=== PATIENT | male | born 1930 | race Caucasian/White ===

== ENCOUNTER 2017-07-13 11:34 | Inpatient (IN) | payer MEDICARE ==
[~2017-07-13] VITALS: Ht 172.7 cm; Wt 80.9 kg
[~2017-07-13 11:34] MED LIST: ACIDOPHILUS100 MG PO; CARV-50 PO; KEP500T PO; LISI10TA4 PO; OMEG300C3 PO; PRAV40TA PO
[2017-07-13] MEDS ORDERED: HYDROmorphone 1 mg/ml syringe IV PRN ×2 (13:50→14:50)
[2017-07-13] MEDS ORDERED: HYDROmorphone inj. 0.5 MG/0.5 ML DISP.SYRIN IV PRN ×2 (13:52→14:50)
[2017-07-13 13:57] LABS: BASOPHILS # (AUTO) 0.1 X10'3 (0-0.2); BASOPHILS % (AUTO) 0.6 % (0-1); EOSINOPHILS # (AUTO) 0.2 X10'3 (0-0.9); EOSINOPHILS % (AUTO) 2.6 % (0-6); HEMOGLOBIN 14.7 g/dl (14.0-17.9); LYMPHOCYTES # (AUTO) 1.1 X10'3 (1.1-4.8); LYMPHOCYTES % (AUTO) 11.8 % (21-51); MEAN CORPUSCULAR HEMOGLOBIN 30.7 PG (27.0-31.0); MEAN CORPUSCULAR HGB CONC 34.3 % (33.0-36.5); MEAN CORPUSCULAR VOLUME 89.7 FL (78-98); MEAN PLATELET VOLUME 9.1 FL (7.4-10.4); MONOCYTES # (AUTO) 0.7 X10'3 (0-0.9); MONOCYTES % (AUTO) 7.6 % (2-12); NEUTROPHILS # (AUTO) 7.3 X10'3 (1.8-7.7); NEUTROPHILS % (AUTO) 77.4 % (42-75); PLATELET COUNT 126 X10'3 (140-440); RED BLOOD COUNT 4.79 X10'6 (4.70-6.10); RED CELL DISTRIBUTION WIDTH 13.9 % (11.5-14.5); WHITE BLOOD COUNT 9.5 X10'3 (4.5-11.0)
[2017-07-13 14:19] LABS: ALANINE AMINOTRANSFERASE 22 U/L (12-78); ALBUMIN 3.8 G/DL (3.4-5.0); ALBUMIN/GLOBULIN RATIO 1.1 (1.1-1.5); ALKALINE PHOSPHATASE 79 IU/L (46-116); ANION GAP 9 (8-16); ASPARTATE AMINO TRANSFERASE 26 U/L (10-37); BILIRUBIN,TOTAL 0.9 MG/DL (0.1-1.0); BLOOD UREA NITROGEN 36 MG/DL (7-18); CALCIUM 9.3 MG/DL (8.5-10.1); CHLORIDE 104 MMOL/L (99-107); CREATININE 2.12 MG/DL (0.60-1.10); GLUCOSE 98 MG/DL (70-104); POTASSIUM 4.6 MMOL/L (3.5-5.1); SODIUM 142 MMOL/L (135-145); TOTAL CARBON DIOXIDE 29.4 MMOL/L (24-32); TOTAL PROTEIN 7.2 G/DL (6.4-8.2); eGFR 30 ML/MIN
[2017-07-13] MEDS ORDERED: ondansetron/PF 4mg/2ml inj IV PRN (14:50)
[2017-07-13] MEDS ORDERED: acetaminophen 325mg tablet PO PRN ×2 (14:50)
[2017-07-13] MEDS ORDERED: diphenhydrAMINE 25mg capsule PO PRN (14:50)
[2017-07-13] MEDS ORDERED: HYDROcodone/acetaminophen 10/325mg tab PO PRN (14:50)
[2017-07-13] MEDS ORDERED: magnesium hydroxide 30ml (MOM) UD suspension PO PRN (14:50)
[2017-07-13] MEDS ORDERED: mag hydrox/Alum hydrox/simeth 30ml oral suspension PO PRN (14:50)
[2017-07-13] MEDS ORDERED: acetaminophen 650mg rectal suppository RC PRN (14:50)
[2017-07-13] MEDS ORDERED: diphenhydrAMINE 50 mg/ml inj IV PRN (14:50)
[2017-07-13] MEDS ORDERED: metoclopramide 5 mg/ml inj IV PRN (14:50)
[2017-07-13 15:08] LABS: INR 1.2 INR; PARTIAL THROMBOPLASTIN TIME 27 SECONDS (22-32)
[2017-07-13 15:13] LABS: HEMOGLOBIN A1C 6.1 % (4.5-6.2)
[2017-07-13 15:23] LABS: MAGNESIUM 2.2 MG/DL (1.5-2.4); PHOSPHORUS 3.1 MG/DL (2.3-4.5)
[2017-07-13 16:20] VITALS: BP 152/86
[2017-07-13 18:19] VITALS: BP 143/74
[2017-07-13] MEDS ORDERED: temazepam 15mg capsule PO PRN (21:00)
[2017-07-13] MEDS: heparin, porcine 5000 units/ml vial SQ SCH (21:21)
[2017-07-13] MEDS: levetiracetam 250mg tablet PO SCH (21:22)
[2017-07-13] MEDS: tamsulosin 0.4mg capsule PO SCH (21:22)
[2017-07-13] MEDS: lactobacillus rhamnosus 10,000 MMU CELLS/CAPSULE PO SCH (21:22)
[2017-07-13] MEDS: docusate sod 100mg capsule PO SCH (21:23)
[2017-07-13] MEDS: cloNIDine 0.1 mg tablet PO SCH (21:23)
[2017-07-13] MEDS: HYDROcodone/acetaminophen 5mg/325mg tablet PO PRN (21:23)
[2017-07-13] MEDS: normal saline 1000ml 1,000 ML IV SCH (21:24)
[2017-07-13 22:00] VITALS: BP 132/67
[2017-07-14] MEDS: normal saline 1000ml 1,000 ML IV SCH ×3 (00:48→20:18)
[2017-07-14] MEDS: HYDROcodone/acetaminophen 5mg/325mg tablet PO PRN ×3 (05:43→17:10)
[2017-07-14 06:29] VITALS: BP 107/60
[2017-07-14] MEDS: heparin, porcine 5000 units/ml vial SQ SCH ×2 (07:21→20:17)
[2017-07-14] MEDS: pantoprazole 40mg Tablet.DR PO SCH (07:23)
[2017-07-14] MEDS: levetiracetam 250mg tablet PO SCH ×2 (07:23→20:17)
[2017-07-14] MEDS: docusate sod 100mg capsule PO SCH ×2 (07:24→20:17)
[2017-07-14] MEDS: atorvastatin 10mg tablet PO SCH (07:24)
[2017-07-14] MEDS: lactobacillus rhamnosus 10,000 MMU CELLS/CAPSULE PO SCH ×2 (07:24→17:10)
[2017-07-14] MEDS: carVEDilol 12.5mg tablet PO SCH (07:24)
[2017-07-14] MEDS ORDERED: pantoprazole 40mg Tablet.DR PO SCH (07:30)
[2017-07-14 07:35] LABS: BASOPHILS % (AUTO) 0.3 % (0-1); EOSINOPHILS # (AUTO) 0.1 X10'3 (0-0.9); EOSINOPHILS % (AUTO) 1.5 % (0-6); HEMATOCRIT 41.3 % (42.0-52.0); HEMOGLOBIN 14.1 g/dl (14.0-17.9); LYMPHOCYTES # (AUTO) 1.2 X10'3 (1.1-4.8); LYMPHOCYTES % (AUTO) 15.5 % (21-51); MEAN CORPUSCULAR HGB CONC 34.1 % (33.0-36.5); MEAN CORPUSCULAR VOLUME 91.1 FL (78-98); MEAN PLATELET VOLUME 9.2 FL (7.4-10.4); MONOCYTES # (AUTO) 0.8 X10'3 (0-0.9); MONOCYTES % (AUTO) 10.6 % (2-12); NEUTROPHILS # (AUTO) 5.4 X10'3 (1.8-7.7); NEUTROPHILS % (AUTO) 72.1 % (42-75); PLATELET COUNT 108 X10'3 (140-440); RED BLOOD COUNT 4.53 X10'6 (4.70-6.10); RED CELL DISTRIBUTION WIDTH 13.6 % (11.5-14.5); WHITE BLOOD COUNT 7.6 X10'3 (4.5-11.0)
[2017-07-14 07:47] LABS: ALANINE AMINOTRANSFERASE 24 U/L (12-78); ALBUMIN 3.4 G/DL (3.4-5.0); ALBUMIN/GLOBULIN RATIO 1.1 (1.1-1.5); ALKALINE PHOSPHATASE 77 IU/L (46-116); ANION GAP 10 (8-16); ASPARTATE AMINO TRANSFERASE 24 U/L (10-37); BILIRUBIN,TOTAL 1.1 MG/DL (0.1-1.0); BLOOD UREA NITROGEN 33 MG/DL (7-18); BUN/CREATININE RATIO 14.1 (5.4-32.0); CALCIUM 8.7 MG/DL (8.5-10.1); CHLORIDE 105 MMOL/L (99-107); CREATININE 2.34 MG/DL (0.60-1.10); GLUCOSE 92 MG/DL (70-104); SODIUM 143 MMOL/L (135-145); TOTAL PROTEIN 6.6 G/DL (6.4-8.2); eGFR 27 ML/MIN
[2017-07-14] MEDS: cloNIDine 0.1 mg tablet PO SCH ×4 (08:00→20:21)
[2017-07-14] MEDS: OMEGA-3/DHA/EPA/FISH OIL 1 EACH CAPSULE.DR PO SCH (08:00)
[2017-07-14] MEDS: lisinopril 10 MG tablet PO SCH (08:00)
[2017-07-14 12:10] VITALS: BP 105/51
[2017-07-14] MEDS ORDERED: ASPI-257 (15:42)
[2017-07-14] MEDS ORDERED: FINA5TAB11 PO (15:42)
[2017-07-14 18:00] VITALS: BP 114/72
[2017-07-14] MEDS: tamsulosin 0.4mg capsule PO SCH (20:17)
[2017-07-14 20:21] VITALS: BP 99/55
[2017-07-15] MEDS: HYDROcodone/acetaminophen 5mg/325mg tablet PO PRN ×3 (00:37→15:42)
[2017-07-15 05:00] VITALS: BP 118/62
[2017-07-15 06:01] LABS: BASOPHILS % (AUTO) 0.4 % (0-1); EOSINOPHILS # (AUTO) 0.2 X10'3 (0-0.9); EOSINOPHILS % (AUTO) 3.6 % (0-6); HEMATOCRIT 38.7 % (42.0-52.0); HEMOGLOBIN 13.3 g/dl (14.0-17.9); LYMPHOCYTES # (AUTO) 1.3 X10'3 (1.1-4.8); LYMPHOCYTES % (AUTO) 18.4 % (21-51); MEAN CORPUSCULAR HEMOGLOBIN 31.1 PG (27.0-31.0); MEAN CORPUSCULAR HGB CONC 34.3 % (33.0-36.5); MEAN CORPUSCULAR VOLUME 90.6 FL (78-98); MEAN PLATELET VOLUME 9.3 FL (7.4-10.4); MONOCYTES # (AUTO) 0.8 X10'3 (0-0.9); MONOCYTES % (AUTO) 11.3 % (2-12); NEUTROPHILS # (AUTO) 4.6 X10'3 (1.8-7.7); NEUTROPHILS % (AUTO) 66.3 % (42-75); PLATELET COUNT 99 X10'3 (140-440); RED BLOOD COUNT 4.27 X10'6 (4.70-6.10); RED CELL DISTRIBUTION WIDTH 13.9 % (11.5-14.5); WHITE BLOOD COUNT 6.9 X10'3 (4.5-11.0)
[2017-07-15 06:24] LABS: ALANINE AMINOTRANSFERASE 25 U/L (12-78); ALBUMIN 3.1 G/DL (3.4-5.0); ALKALINE PHOSPHATASE 69 IU/L (46-116); ANION GAP 7 (8-16); ASPARTATE AMINO TRANSFERASE 24 U/L (10-37); BILIRUBIN,TOTAL 0.7 MG/DL (0.1-1.0); BLOOD UREA NITROGEN 38 MG/DL (7-18); BUN/CREATININE RATIO 15.1 (5.4-32.0); CALCIUM 8.3 MG/DL (8.5-10.1); CHLORIDE 107 MMOL/L (99-107); CREATININE 2.51 MG/DL (0.60-1.10); GLUCOSE 96 MG/DL (70-104); POTASSIUM 4.8 MMOL/L (3.5-5.1); SODIUM 141 MMOL/L (135-145); TOTAL CARBON DIOXIDE 26.7 MMOL/L (24-32); TOTAL PROTEIN 6.3 G/DL (6.4-8.2); eGFR 24 ML/MIN
[2017-07-15] MEDS: normal saline 1000ml 1,000 ML IV SCH ×3 (06:48→20:17)
[2017-07-15] MEDS: levetiracetam 250mg tablet PO SCH ×2 (07:59→20:16)
[2017-07-15] MEDS: lisinopril 10 MG tablet PO SCH (07:59)
[2017-07-15] MEDS: pantoprazole 40mg Tablet.DR PO SCH (08:00)
[2017-07-15] MEDS: cloNIDine 0.1 mg tablet PO SCH ×3 (08:00→20:16)
[2017-07-15] MEDS: heparin, porcine 5000 units/ml vial SQ SCH ×2 (08:00→20:16)
[2017-07-15] MEDS: lactobacillus rhamnosus 10,000 MMU CELLS/CAPSULE PO SCH ×2 (08:01→17:54)
[2017-07-15] MEDS: OMEGA-3/DHA/EPA/FISH OIL 1 EACH CAPSULE.DR PO SCH (08:01)
[2017-07-15] MEDS: docusate sod 100mg capsule PO SCH ×2 (08:01→20:16)
[2017-07-15] MEDS: carVEDilol 12.5mg tablet PO SCH (08:02)
[2017-07-15] MEDS: atorvastatin 10mg tablet PO SCH (08:02)
[2017-07-15 10:49] VITALS: BP 114/59
[2017-07-15 18:00] VITALS: BP 155/71
[2017-07-15] MEDS: tamsulosin 0.4mg capsule PO SCH (20:16)
[2017-07-15 22:00] VITALS: BP 128/69
[2017-07-16] MEDS: normal saline 1000ml 1,000 ML IV SCH (05:38)
[2017-07-16 05:56] LABS: BASOPHILS % (AUTO) 0.4 % (0-1); EOSINOPHILS # (AUTO) 0.2 X10'3 (0-0.9); EOSINOPHILS % (AUTO) 4.1 % (0-6); HEMATOCRIT 37.2 % (42.0-52.0); HEMOGLOBIN 12.8 g/dl (14.0-17.9); LYMPHOCYTES # (AUTO) 0.9 X10'3 (1.1-4.8); LYMPHOCYTES % (AUTO) 15.6 % (21-51); MEAN CORPUSCULAR HGB CONC 34.4 % (33.0-36.5); MEAN CORPUSCULAR VOLUME 90.2 FL (78-98); MEAN PLATELET VOLUME 9.3 FL (7.4-10.4); MONOCYTES # (AUTO) 0.7 X10'3 (0-0.9); MONOCYTES % (AUTO) 11.3 % (2-12); NEUTROPHILS % (AUTO) 68.6 % (42-75); PLATELET COUNT 90 X10'3 (140-440); RED BLOOD COUNT 4.12 X10'6 (4.70-6.10); RED CELL DISTRIBUTION WIDTH 13.4 % (11.5-14.5); WHITE BLOOD COUNT 5.8 X10'3 (4.5-11.0)
[2017-07-16 06:00] VITALS: BP 134/67
[2017-07-16 06:05] LABS: ALANINE AMINOTRANSFERASE 23 U/L (12-78); ALBUMIN 2.8 G/DL (3.4-5.0); ALBUMIN/GLOBULIN RATIO 0.9 (1.1-1.5); ALKALINE PHOSPHATASE 62 IU/L (46-116); ANION GAP 10 (8-16); ASPARTATE AMINO TRANSFERASE 22 U/L (10-37); BILIRUBIN,TOTAL 0.8 MG/DL (0.1-1.0); BLOOD UREA NITROGEN 32 MG/DL (7-18); BUN/CREATININE RATIO 16.5 (5.4-32.0); CALCIUM 8.3 MG/DL (8.5-10.1); CHLORIDE 107 MMOL/L (99-107); CREATININE 1.94 MG/DL (0.60-1.10); GLUCOSE 92 MG/DL (70-104); POTASSIUM 4.5 MMOL/L (3.5-5.1); SODIUM 142 MMOL/L (135-145); TOTAL CARBON DIOXIDE 24.7 MMOL/L (24-32); TOTAL PROTEIN 5.8 G/DL (6.4-8.2); eGFR 33 ML/MIN
[2017-07-16] MEDS: cloNIDine 0.1 mg tablet PO SCH ×4 (08:00→21:07)
[2017-07-16] MEDS: heparin, porcine 5000 units/ml vial SQ SCH ×2 (08:00→20:00)
[2017-07-16] MEDS: carVEDilol 12.5mg tablet PO SCH (08:00)
[2017-07-16] MEDS: lisinopril 10 MG tablet PO SCH (08:00)
[2017-07-16 08:41] VITALS: BP 98/49
[2017-07-16] MEDS: lactobacillus rhamnosus 10,000 MMU CELLS/CAPSULE PO SCH ×2 (08:44→17:36)
[2017-07-16] MEDS: pantoprazole 40mg Tablet.DR PO SCH (08:44)
[2017-07-16] MEDS: OMEGA-3/DHA/EPA/FISH OIL 1 EACH CAPSULE.DR PO SCH (08:44)
[2017-07-16] MEDS: docusate sod 100mg capsule PO SCH ×2 (08:44→21:08)
[2017-07-16] MEDS: atorvastatin 10mg tablet PO SCH (08:45)
[2017-07-16] MEDS: levetiracetam 250mg tablet PO SCH ×2 (08:45→21:08)
[2017-07-16 10:00] VITALS: BP 103/52
[2017-07-16] MEDS: HYDROcodone/acetaminophen 5mg/325mg tablet PO PRN (12:25)
[2017-07-16 13:45] VITALS: BP 112/68
[2017-07-16] MEDS ORDERED: HYDROcodone/acetaminophen 10/325mg tab PO PRN (17:25)
[2017-07-16] MEDS ORDERED: morphine 2 MG/ML inj. syringe IV PRN (17:25)
[2017-07-16 18:00] VITALS: BP 120/67
[2017-07-16] MEDS: tamsulosin 0.4mg capsule PO SCH (21:07)
[2017-07-16] MEDS ORDERED: acetaminophen w/codeine (30MG) #3 tablet PO PRN (21:30)
[2017-07-16] MEDS ORDERED: LORazepam 0.5 MG tablet PO PRN (21:30)
[2017-07-16 22:00] VITALS: BP 117/61
[2017-07-17] MEDS: acetaminophen w/codeine (30MG) #3 tablet PO PRN ×3 (01:22→08:55)
[2017-07-17] MEDS ORDERED: cefTRIAXone 1g/NS 100ml IVPB 100 ML IV ONE (04:20)
[2017-07-17 05:00] VITALS: BP 103/57
[2017-07-17 05:51] LABS: BASOPHILS % (AUTO) 0.3 % (0-1); EOSINOPHILS # (AUTO) 0.2 X10'3 (0-0.9); EOSINOPHILS % (AUTO) 3.9 % (0-6); HEMATOCRIT 37.6 % (42.0-52.0); HEMOGLOBIN 12.8 g/dl (14.0-17.9); LYMPHOCYTES % (AUTO) 16.4 % (21-51); MEAN CORPUSCULAR HEMOGLOBIN 31.1 PG (27.0-31.0); MEAN CORPUSCULAR HGB CONC 34.1 % (33.0-36.5); MEAN CORPUSCULAR VOLUME 91.3 FL (78-98); MEAN PLATELET VOLUME 9.4 FL (7.4-10.4); MONOCYTES # (AUTO) 0.7 X10'3 (0-0.9); NEUTROPHILS # (AUTO) 4.1 X10'3 (1.8-7.7); NEUTROPHILS % (AUTO) 68.4 % (42-75); PLATELET COUNT 102 X10'3 (140-440); RED BLOOD COUNT 4.12 X10'6 (4.70-6.10); RED CELL DISTRIBUTION WIDTH 13.7 % (11.5-14.5)
[2017-07-17 06:23] LABS: ALANINE AMINOTRANSFERASE 25 U/L (12-78); ALBUMIN 2.8 G/DL (3.4-5.0); ALBUMIN/GLOBULIN RATIO 0.9 (1.1-1.5); ALKALINE PHOSPHATASE 66 IU/L (46-116); ANION GAP 8 (8-16); ASPARTATE AMINO TRANSFERASE 23 U/L (10-37); BILIRUBIN,TOTAL 0.6 MG/DL (0.1-1.0); BLOOD UREA NITROGEN 31 MG/DL (7-18); BUN/CREATININE RATIO 15.5 (5.4-32.0); CALCIUM 8.3 MG/DL (8.5-10.1); CHLORIDE 108 MMOL/L (99-107); GLUCOSE 102 MG/DL (70-104); POTASSIUM 4.6 MMOL/L (3.5-5.1); SODIUM 142 MMOL/L (135-145); TOTAL PROTEIN 5.9 G/DL (6.4-8.2); eGFR 32 ML/MIN
[2017-07-17] MEDS: carVEDilol 12.5mg tablet PO SCH (08:00)
[2017-07-17] MEDS: cloNIDine 0.1 mg tablet PO SCH (08:00)
[2017-07-17] MEDS: lisinopril 10 MG tablet PO SCH (08:00)
[2017-07-17] MEDS: OMEGA-3/DHA/EPA/FISH OIL 1 EACH CAPSULE.DR PO SCH (08:28)
[2017-07-17] MEDS: docusate sod 100mg capsule PO SCH (08:28)
[2017-07-17] MEDS: lactobacillus rhamnosus 10,000 MMU CELLS/CAPSULE PO SCH (08:28)
[2017-07-17] MEDS: pantoprazole 40mg Tablet.DR PO SCH (08:28)
[2017-07-17] MEDS: atorvastatin 10mg tablet PO SCH (08:29)
[2017-07-17] MEDS: levetiracetam 250mg tablet PO SCH (08:29)
== END 2017-07-17 09:00 | DRG 682 ==
LOC: ER 11:35 → ED HOLD 14:48 → ORTHO 4S 16:20
PROVIDERS: ADMIT Family Medicine; ATTEND Internal Medicine
DX: N17.9 Acute kidney failure, unspecified (principal); S72.001A Fracture of unspecified part of neck of right femur, initial encounter for closed fracture; I50.33 Acute on chronic diastolic (congestive) heart failure; J44.9 Chronic obstructive pulmonary disease, unspecified; I11.0 Hypertensive heart disease with heart failure; Z95.1 Presence of aortocoronary bypass graft; I16.1 Hypertensive emergency; R26.9 Unspecified abnormalities of gait and mobility; I25.10 Atherosclerotic heart disease of native coronary artery without angina pectoris; N40.0 Benign prostatic hyperplasia without lower urinary tract symptoms; R09.02 Hypoxemia; W01.0XXA Fall on same level from slipping, tripping and stumbling without subsequent striking against object, initial encounter; Z99.3 Dependence on wheelchair; Z88.5 Allergy status to narcotic agent; Z79.899 Other long term (current) drug therapy; Y93.89 Activity, other specified; Y92.89 Other specified places as the place of occurrence of the external cause; Y99.8 Other external cause status
CPT/HCPCS: 36415; 71270; 72131; 72192; 73502; 80053; 83036; 83690; 83735; 83880; 84100; 84443; 85025; 85610; 85730; 87070; 93306; 94760; 96365; 97110; 97116; 97162; 97530; 99285; A4353; A6212; A6258; J0696; J1170; J1644; J7030

== ENCOUNTER 2019-04-22 10:11 | Inpatient (IN) | payer MEDICARE ==
[~2019-04-22] VITALS: Ht 172.7 cm; Wt 76.1 kg
[~2019-04-22 10:11] MED LIST changes: -ACIDOPHILUS100 MG PO; +ADV50250 INH; +ALBU18HF2 INH; +ALBU2.5V10 NEB; +ASPI-257 PO; +ATOR40TA72 PO; -CARV-50 PO; +CARV6.253 PO; +FLO0.4C PO; +FURO-149 PO; -LISI10TA4 PO; +MULT-955 PO; -PRAV40TA PO
[2019-04-22 11:50] LABS: BASOPHILS % (AUTO) 0.9 % (0-1); EOSINOPHILS # (AUTO) 0.1 X10'3 (0-0.9); EOSINOPHILS % (AUTO) 1.9 % (0-6); HEMOGLOBIN 12.9 g/dl (14.0-17.9); LYMPHOCYTES % (AUTO) 17.6 % (21-51); MEAN CORPUSCULAR HEMOGLOBIN 32.4 PG (27.0-31.0); MEAN CORPUSCULAR HGB CONC 33.2 g/dL (33.0-36.5); MEAN CORPUSCULAR VOLUME 97.6 FL (78-98); MEAN PLATELET VOLUME 9.8 FL (7.4-10.4); MONOCYTES # (AUTO) 0.8 X10'3 (0-0.9); MONOCYTES % (AUTO) 14.1 % (2-12); NEUTROPHILS # (AUTO) 3.6 X10'3 (1.8-7.7); NEUTROPHILS % (AUTO) 65.5 % (42-75); PLATELET COUNT 85 X10'3 (140-440); RED CELL DISTRIBUTION WIDTH 14.5 % (11.5-14.5); WHITE BLOOD COUNT 5.6 X10'3 (4.5-11.0)
[2019-04-22 12:07] LABS: ALANINE AMINOTRANSFERASE 20 U/L (12-78); ALBUMIN 3.2 G/DL (3.4-5.0); ALBUMIN/GLOBULIN RATIO 1.1 (1.1-1.5); ALKALINE PHOSPHATASE 71 IU/L (46-116); ANION GAP 4 (8-16); ASPARTATE AMINO TRANSFERASE 23 U/L (10-37); BILIRUBIN,TOTAL 0.7 MG/DL (0.1-1.0); BLOOD UREA NITROGEN 44 MG/DL (7-18); BUN/CREATININE RATIO 17.9 (5.4-32.0); CALCIUM 9.1 MG/DL (8.5-10.1); CHLORIDE 104 MMOL/L (99-107); CREATININE 2.46 MG/DL (0.60-1.10); GLUCOSE 112 MG/DL (70-104); POTASSIUM 3.8 MMOL/L (3.5-5.1); SODIUM 145 MMOL/L (135-145); TOTAL CARBON DIOXIDE 37.1 MMOL/L (24-32); TOTAL PROTEIN 6.2 G/DL (6.4-8.2); eGFR 25 ML/MIN
[2019-04-22 12:14] LABS: MAGNESIUM 2.1 MG/DL (1.5-2.4)
[2019-04-22] MEDS ORDERED: furosemide 10 MG/1 ML 10ml inj IV ONE (13:00)
[2019-04-22] MEDS ORDERED: FINA5TAB12 PO (13:59)
[2019-04-22] MEDS ORDERED: FURO40TA4 PO (14:08)
--- NOTE | 2019-04-22 14:48 | NUR ---
pt states, he frequently puts tissue in his nose to help with his nasal drip. had pt remove for nasal swab.
[2019-04-22] MEDS ORDERED: mag hydrox/Alum hydrox/simeth 30ml oral suspension PO PRN (15:25)
[2019-04-22] MEDS ORDERED: magnesium hydroxide 30ml (MOM) UD suspension PO PRN (15:25)
[2019-04-22] MEDS ORDERED: ondansetron/PF 4mg/2ml inj IV PRN (15:25)
--- NOTE | 2019-04-22 16:16 | NUR ---
Patient in room MED 309. I have received report from ER nurse Ebony and had the opportunity to ask questions and assume patient care.
--- NOTE | 2019-04-22 16:34 | NUR ---
CALLED REPORT NURSE IS IN A ROOM WILL CALL BACK
--- NOTE | 2019-04-22 17:12 | NUR ---
Patient arrived from ER helped to his bed using slide board. Placed on monitors. VS s and were 97.8 oral, 77, 122/62, 14. He denied any pain, no s/s of distress. His daughter was with him. He is alert and oriented x4. When nurses went to do 2 RN skin check the pt was found to have feces and toilet paper in his under patel, they were removed, and pt cleaned. Pt and daughter requested that his underware be thrown away. he stated he had diarrhea this morning but did not realize that this was on him. He did say he had placed toilet paper around perianal area because it was burning. When the 2 RN skin check he was found to have blanchable redness to his bilat buttocks going down to thigh area. His groin was very red and irritated. He had red but blanchable heels. Very dry skin on both feet. He had a venous stasis ulcer on [facility]. He denied any other needs at this time except that he was very hungry. Tray ordered for him. Report given to [facility] Nurse.
[2019-04-22 18:00] VITALS: BP 129/63
--- NOTE | 2019-04-22 18:00 | NUR ---
Problems reprioritized. Patient report given, questions answered & plan of care reviewed with Tamiko FARRELL.
[2019-04-22] MEDS: albuterol 2.5 MG/3 ML nebule NEB PRN (19:23)
[2019-04-22] MEDS: budesonide 0.5mg/2ml UD nebule IH SCH (19:24)
[2019-04-22] MEDS: carvedilol 6.25mg tablet PO SCH (20:30)
[2019-04-22] MEDS: tamsulosin 0.4mg capsule PO SCH (20:30)
[2019-04-22] MEDS: levetiracetam 250mg tablet PO SCH (20:30)
[2019-04-22] MEDS: heparin, porcine 5000 units/ml vial SQ SCH (20:31)
[2019-04-22] MEDS: furosemide 10 MG/1 ML 10ml inj IV SCH (20:32)
[2019-04-22] MEDS: finasteride 5mg tablet PO SCH (20:33)
[2019-04-22 22:27] VITALS: BP 127/71
[2019-04-23 04:00] VITALS: BP 126/60
[2019-04-23 04:55] LABS: ALBUMIN 3.4 G/DL (3.4-5.0); ANION GAP 4 (8-16); BLOOD UREA NITROGEN 42 MG/DL (7-18); BUN/CREATININE RATIO 16.7 (5.4-32.0); CALCIUM 9.2 MG/DL (8.5-10.1); CHLORIDE 103 MMOL/L (99-107); CREATININE 2.52 MG/DL (0.60-1.10); GLUCOSE 99 MG/DL (70-104); POTASSIUM 4.1 MMOL/L (3.5-5.1); SODIUM 144 MMOL/L (135-145); TOTAL CARBON DIOXIDE 37.3 MMOL/L (24-32); eGFR 24 ML/MIN
[2019-04-23 04:58] LABS: EOSINOPHILS # (AUTO) 0.1 X10'3 (0-0.9); EOSINOPHILS % (AUTO) 2.7 % (0-6); HEMATOCRIT 40.9 % (42.0-52.0); HEMOGLOBIN 13.5 g/dl (14.0-17.9); LYMPHOCYTES # (AUTO) 1.1 X10'3 (1.1-4.8); LYMPHOCYTES % (AUTO) 22.8 % (21-51); MEAN CORPUSCULAR HEMOGLOBIN 31.7 PG (27.0-31.0); MEAN CORPUSCULAR VOLUME 96.2 FL (78-98); MEAN PLATELET VOLUME 9.6 FL (7.4-10.4); MONOCYTES # (AUTO) 0.7 X10'3 (0-0.9); MONOCYTES % (AUTO) 13.9 % (2-12); NEUTROPHILS # (AUTO) 2.9 X10'3 (1.8-7.7); NEUTROPHILS % (AUTO) 59.6 % (42-75); PLATELET COUNT 89 X10'3 (140-440); RED BLOOD COUNT 4.25 X10'6 (4.70-6.10); RED CELL DISTRIBUTION WIDTH 14.9 % (11.5-14.5); WHITE BLOOD COUNT 4.8 X10'3 (4.5-11.0)
[2019-04-23 06:00] VITALS: BP 117/56
--- NOTE | 2019-04-23 06:21 | NUR ---
Problems reprioritized. Patient report given Kati, questions answered & plan of care reviewed with . Addendum: 04/23/19 at 0623 by Lillian Davies RN Gave report to Chavez not Kati.
--- NOTE | 2019-04-23 06:33 | NUR ---
Patient in room MED 309. I have received report from JAMI Snyder and had the opportunity to ask questions and assume patient care.
[2019-04-23] MEDS: furosemide 10 MG/1 ML 10ml inj IV SCH ×2 (07:37→21:00)
[2019-04-23] MEDS: multivitamins, therapeutics tablet PO SCH (07:38)
[2019-04-23] MEDS: heparin, porcine 5000 units/ml vial SQ SCH ×2 (07:38→21:01)
[2019-04-23] MEDS: omega-3 acid ethyl esters 1GM capsule PO SCH (07:38)
[2019-04-23] MEDS: aspirin 81mg tablet.DR PO SCH (07:39)
[2019-04-23] MEDS: tamsulosin 0.4mg capsule PO SCH ×2 (07:39→21:01)
[2019-04-23] MEDS: carvedilol 6.25mg tablet PO SCH ×2 (07:39→21:01)
[2019-04-23] MEDS: levetiracetam 250mg tablet PO SCH ×2 (07:39→21:01)
[2019-04-23] MEDS: atorvastatin 20mg tablet PO SCH (07:39)
[2019-04-23] MEDS: budesonide 0.5mg/2ml UD nebule IH SCH ×2 (07:49→19:34)
--- NOTE | 2019-04-23 10:30 | NUR ---
DISCHARGE FOLLOW-UP APPOINTMENT DR. LÓPEZ 05/27/19 @ [id number]
[2019-04-23 11:00] VITALS: BP 116/50
[2019-04-23 15:00] VITALS: BP 99/49
[2019-04-23 18:00] VITALS: BP 129/62
--- NOTE | 2019-04-23 18:27 | NUR ---
Problems reprioritized. Patient report given, questions answered & plan of care reviewed with JAMI Snyder.
[2019-04-23] MEDS: DOBUTamine-DoBUTrex 500mg/D5W 250 ML IV SCH (18:53)
[2019-04-23] MEDS: albuterol 2.5 MG/3 ML nebule NEB PRN (19:33)
[2019-04-23] MEDS: finasteride 5mg tablet PO SCH (21:02)
[2019-04-23 22:00] VITALS: BP 117/58
--- NOTE | 2019-04-23 23:08 | NUR ---
patient refused to put the SCD's on despite explaining to him that it helps to prevent DVT and also will help decrease the edema on the legs.
[2019-04-24] VITALS (7 sets, daily range): BP systolic 109–124; BP diastolic 49–58
[2019-04-24 03:10] LABS: BASOPHILS % (AUTO) 0.7 % (0-1); EOSINOPHILS # (AUTO) 0.2 X10'3 (0-0.9); EOSINOPHILS % (AUTO) 2.8 % (0-6); HEMATOCRIT 38.5 % (42.0-52.0); HEMOGLOBIN 12.8 g/dl (14.0-17.9); LYMPHOCYTES # (AUTO) 1.1 X10'3 (1.1-4.8); LYMPHOCYTES % (AUTO) 19.4 % (21-51); MEAN CORPUSCULAR HEMOGLOBIN 31.8 PG (27.0-31.0); MEAN CORPUSCULAR HGB CONC 33.2 g/dL (33.0-36.5); MEAN PLATELET VOLUME 9.8 FL (7.4-10.4); MONOCYTES # (AUTO) 0.8 X10'3 (0-0.9); MONOCYTES % (AUTO) 14.6 % (2-12); NEUTROPHILS # (AUTO) 3.4 X10'3 (1.8-7.7); NEUTROPHILS % (AUTO) 62.5 % (42-75); PLATELET COUNT 86 X10'3 (140-440); RED BLOOD COUNT 4.01 X10'6 (4.70-6.10); RED CELL DISTRIBUTION WIDTH 14.7 % (11.5-14.5); WHITE BLOOD COUNT 5.5 X10'3 (4.5-11.0)
[2019-04-24 03:14] LABS: ALBUMIN 3.2 G/DL (3.4-5.0); ANION GAP 4 (8-16); BLOOD UREA NITROGEN 47 MG/DL (7-18); BUN/CREATININE RATIO 20.3 (5.4-32.0); CALCIUM 8.8 MG/DL (8.5-10.1); CHLORIDE 102 MMOL/L (99-107); CREATININE 2.31 MG/DL (0.60-1.10); GLUCOSE 107 MG/DL (70-104); POTASSIUM 3.4 MMOL/L (3.5-5.1); SODIUM 145 MMOL/L (135-145); eGFR 27 ML/MIN
[2019-04-24] MEDS: budesonide 0.5mg/2ml UD nebule IH SCH ×2 (07:41→19:04)
[2019-04-24] MEDS: heparin, porcine 5000 units/ml vial SQ SCH ×2 (10:06→19:14)
[2019-04-24] MEDS: omega-3 acid ethyl esters 1GM capsule PO SCH (10:07)
[2019-04-24] MEDS: levetiracetam 250mg tablet PO SCH ×2 (10:07→19:13)
[2019-04-24] MEDS: aspirin 81mg tablet.DR PO SCH (10:07)
[2019-04-24] MEDS: tamsulosin 0.4mg capsule PO SCH ×2 (10:08→19:13)
[2019-04-24] MEDS: multivitamins, therapeutics tablet PO SCH (10:08)
[2019-04-24] MEDS: carvedilol 6.25mg tablet PO SCH ×2 (10:08→19:14)
[2019-04-24] MEDS: atorvastatin 20mg tablet PO SCH (10:08)
[2019-04-24] MEDS: furosemide 10 MG/1 ML 10ml inj IV SCH ×2 (10:09→19:14)
[2019-04-24] MEDS ORDERED: potassium Cl 20 mEq SR tablet PO ONE (10:45)
[2019-04-24] MEDS ORDERED: furosemide 40mg/4ml inj IV ONE (12:00)
[2019-04-24] MEDS: DOBUTamine-DoBUTrex 500mg/D5W 250 ML IV SCH (14:43)
[2019-04-24] MEDS: finasteride 5mg tablet PO SCH (19:14)
[2019-04-24] MEDS: acetaminophen 325mg tablet PO PRN (19:15)
[2019-04-25] VITALS (11 sets, daily range): BP systolic 101–119; BP diastolic 48–68
[2019-04-25 04:32] LABS: BASOPHILS % (AUTO) 0.6 % (0-1); EOSINOPHILS # (AUTO) 0.1 X10'3 (0-0.9); EOSINOPHILS % (AUTO) 2.4 % (0-6); HEMATOCRIT 38.7 % (42.0-52.0); HEMOGLOBIN 12.7 g/dl (14.0-17.9); LYMPHOCYTES # (AUTO) 1.1 X10'3 (1.1-4.8); LYMPHOCYTES % (AUTO) 23.5 % (21-51); MEAN CORPUSCULAR HEMOGLOBIN 31.7 PG (27.0-31.0); MEAN CORPUSCULAR HGB CONC 32.7 g/dL (33.0-36.5); MEAN CORPUSCULAR VOLUME 96.8 FL (78-98); MEAN PLATELET VOLUME 9.5 FL (7.4-10.4); MONOCYTES # (AUTO) 0.8 X10'3 (0-0.9); MONOCYTES % (AUTO) 16.6 % (2-12); NEUTROPHILS # (AUTO) 2.8 X10'3 (1.8-7.7); NEUTROPHILS % (AUTO) 56.9 % (42-75); PLATELET COUNT 86 X10'3 (140-440); RED CELL DISTRIBUTION WIDTH 14.5 % (11.5-14.5); WHITE BLOOD COUNT 4.8 X10'3 (4.5-11.0)
[2019-04-25 04:33] LABS: ANION GAP 2 (8-16); BLOOD UREA NITROGEN 43 MG/DL (7-18); CALCIUM 8.5 MG/DL (8.5-10.1); CHLORIDE 100 MMOL/L (99-107); CREATININE 2.26 MG/DL (0.60-1.10); GLUCOSE 119 MG/DL (70-104); POTASSIUM 3.4 MMOL/L (3.5-5.1); SODIUM 143 MMOL/L (135-145); eGFR 28 ML/MIN
[2019-04-25 04:38] LABS: TOTAL CARBON DIOXIDE 41.2 MMOL/L (24-32)
--- NOTE | 2019-04-25 04:42 | NUR ---
Called Dr. Crawford and informed him regarding the critical value for CO2 being 41.2. He acknowledged the critical value but no orders were given at this time.
[2019-04-25] MEDS: acetaminophen 325mg tablet PO PRN (05:32)
--- NOTE | 2019-04-25 06:10 | NUR ---
Patient in room MED 309. I have received report from JAMI Snyder and had the opportunity to ask questions and assume patient care.
--- NOTE | 2019-04-25 07:30 | NUR ---
Noted that patient serum CO2 is elevated at 41.2. Notified charge nurse , JAMI Silva. Titrated O2 from 4L on NC down to 2L over a period of 15 minutes. Patient's Sats were 100%. Patient tolerated the titration well. He is currently Sat at 95% or greater. I will continue to monitor patient for duration of shift.
[2019-04-25] MEDS: tamsulosin 0.4mg capsule PO SCH ×2 (07:55→19:34)
[2019-04-25] MEDS: carvedilol 6.25mg tablet PO SCH ×2 (07:55→19:34)
[2019-04-25] MEDS: omega-3 acid ethyl esters 1GM capsule PO SCH (07:55)
[2019-04-25] MEDS: levetiracetam 250mg tablet PO SCH ×2 (07:56→19:34)
[2019-04-25] MEDS: multivitamins, therapeutics tablet PO SCH (07:56)
[2019-04-25] MEDS: aspirin 81mg tablet.DR PO SCH (07:56)
[2019-04-25] MEDS: potassium Cl 20 mEq SR tablet PO SCH (07:56)
[2019-04-25] MEDS: furosemide 10 MG/1 ML 10ml inj IV SCH ×2 (07:56→19:35)
[2019-04-25] MEDS: atorvastatin 20mg tablet PO SCH (07:56)
[2019-04-25] MEDS: heparin, porcine 5000 units/ml vial SQ SCH ×2 (07:56→19:35)
--- NOTE | 2019-04-25 08:21 | NUR ---
PAGER ID: [phone] MESSAGE: Dr. Kwan-Patient in room 309. Regi Rodriguez adding K and Mag protocol and add on test of mag. Patient is being diuresed and K is 3.4 this morning. Thank you, Noemí Seymour ACCAna M [id number]
[2019-04-25] MEDS ORDERED: potassium CL 10mEq/100ml bag 100 ML IV PRN (08:25)
[2019-04-25] MEDS ORDERED: potassium Cl 20 mEq SR tablet PO PRN ×2 (08:25)
[2019-04-25] MEDS ORDERED: magnesium Cl slow-release 64mg tablet PO PRN (08:25)
[2019-04-25] MEDS ORDERED: magnesium 4gm in 100ml NS 100 ML IV PRN (08:25)
[2019-04-25] MEDS: budesonide 0.5mg/2ml UD nebule IH SCH ×2 (08:47→20:09)
[2019-04-25] MEDS: DOBUTamine-DoBUTrex 500mg/D5W 250 ML IV SCH (09:31)
[2019-04-25 09:33] LABS: MAGNESIUM 1.8 MG/DL (1.5-2.4)
[2019-04-25] MEDS ORDERED: potassium Cl 20 mEq SR tablet PO STA (11:11)
[2019-04-25] MEDS ORDERED: magnesium 2GM in 50ml NS 50 ML IV ONE (11:15)
[2019-04-25] MEDS ORDERED: furosemide 40mg/4ml inj IV ONE (11:15)
--- NOTE | 2019-04-25 11:17 | NUR ---
Dr. Suggs at bedside. new orders received: lasix 40mg IV x1, KDUR 40 mEq PO x1, mag 2g IV x1, keep k > 4.0, keep mg > 2.0
--- NOTE | 2019-04-25 18:01 | NUR ---
Problems reprioritized. Patient report given, questions answered & plan of care reviewed with JAMI Snyder.
--- NOTE | 2019-04-25 18:06 | NUR ---
Student documentation: I have reviewed and agree with all interventions, assessments performed and documented by Ana FARRELL.
[2019-04-25] MEDS: finasteride 5mg tablet PO SCH (19:35)
[2019-04-26] VITALS (12 sets, daily range): BP systolic 92–133; BP diastolic 37–64
[2019-04-26] MEDS: DOBUTamine-DoBUTrex 500mg/D5W 250 ML IV SCH ×2 (02:02→21:58)
[2019-04-26 03:46] LABS: ALBUMIN 3.4 G/DL (3.4-5.0); ANION GAP 1 (8-16); BLOOD UREA NITROGEN 42 MG/DL (7-18); BUN/CREATININE RATIO 18.8 (5.4-32.0); CALCIUM 8.8 MG/DL (8.5-10.1); CHLORIDE 99 MMOL/L (99-107); CREATININE 2.23 MG/DL (0.60-1.10); GLUCOSE 153 MG/DL (70-104); MAGNESIUM 2.1 MG/DL (1.5-2.4); SODIUM 141 MMOL/L (135-145); eGFR 28 ML/MIN
[2019-04-26 03:49] LABS: BASOPHILS % (AUTO) 0.8 % (0-1); EOSINOPHILS # (AUTO) 0.1 X10'3 (0-0.9); EOSINOPHILS % (AUTO) 2.1 % (0-6); HEMATOCRIT 41.5 % (42.0-52.0); HEMOGLOBIN 13.4 g/dl (14.0-17.9); LYMPHOCYTES # (AUTO) 1.4 X10'3 (1.1-4.8); LYMPHOCYTES % (AUTO) 23.1 % (21-51); MEAN CORPUSCULAR HEMOGLOBIN 30.8 PG (27.0-31.0); MEAN CORPUSCULAR HGB CONC 32.2 g/dL (33.0-36.5); MEAN CORPUSCULAR VOLUME 95.6 FL (78-98); MEAN PLATELET VOLUME 9.2 FL (7.4-10.4); MONOCYTES # (AUTO) 0.8 X10'3 (0-0.9); MONOCYTES % (AUTO) 13.7 % (2-12); NEUTROPHILS # (AUTO) 3.6 X10'3 (1.8-7.7); NEUTROPHILS % (AUTO) 60.3 % (42-75); PLATELET COUNT 98 X10'3 (140-440); RED BLOOD COUNT 4.34 X10'6 (4.70-6.10); RED CELL DISTRIBUTION WIDTH 14.5 % (11.5-14.5); TOTAL CARBON DIOXIDE 40.6 MMOL/L (24-32); WHITE BLOOD COUNT 5.9 X10'3 (4.5-11.0)
--- NOTE | 2019-04-26 06:10 | NUR ---
Patient in room MED 309. I have received report from JAMI Snyder and had the opportunity to ask questions and assume patient care.
--- NOTE | 2019-04-26 06:28 | NUR ---
Problems reprioritized. Patient report given to Noy-RN and ColetteRN, questions answered & plan of care reviewed with .
[2019-04-26] MEDS: furosemide 10 MG/1 ML 10ml inj IV SCH ×2 (08:00→20:40)
[2019-04-26] MEDS: carvedilol 6.25mg tablet PO SCH ×2 (08:00→20:39)
[2019-04-26] MEDS: levetiracetam 250mg tablet PO SCH ×2 (08:01→20:39)
[2019-04-26] MEDS: potassium Cl 20 mEq SR tablet PO SCH (08:02)
[2019-04-26] MEDS: atorvastatin 20mg tablet PO SCH (08:02)
[2019-04-26] MEDS: omega-3 acid ethyl esters 1GM capsule PO SCH (08:02)
[2019-04-26] MEDS: multivitamins, therapeutics tablet PO SCH (08:02)
[2019-04-26] MEDS: aspirin 81mg tablet.DR PO SCH (08:03)
[2019-04-26] MEDS: tamsulosin 0.4mg capsule PO SCH ×2 (08:04→20:39)
[2019-04-26] MEDS: heparin, porcine 5000 units/ml vial SQ SCH ×2 (08:10→20:41)
[2019-04-26] MEDS: budesonide 0.5mg/2ml UD nebule IH SCH ×2 (09:02→19:34)
--- NOTE | 2019-04-26 17:18 | NUR ---
Initial: Pt admitted for increasing edema r/t CHF; currently documented with BLE edema +3, LUE edema +1, abdomen edema +1. Pt is meeting nutrient needs documented with average 100% PO intake on a heart healthy, sodium restricted diet with 1.2L fluid restriction. Spoke with pt at bedside, pt states he is feeling satisfied from his meals and denies food preferences at this time. Pt denies food allergies, difficulties chewing or swallowing, or constipation/diarrhea. RD contact information provided. LB 04/25. No nutrition diagnosis at this time. Will continue to follow. Recommendations: 1. Continue Heart healthy, sodium restricted diet, fluid restriction 1200ml per MD 2. bowel care as needed 3. weight per rx Addendum: 04/26/19 at [address] Amended: Links added. Addendum: 04/26/19 at [address] I have reviewed and agree with note by [employer] Operator. Cecilia Mosqueda RD
--- NOTE | 2019-04-26 18:00 | NUR ---
Patient in room MED 309. I have received report from Nelda FARRELL and had the opportunity to ask questions and assume patient care.
[2019-04-26] MEDS: acetaminophen 325mg tablet PO PRN (19:38)
[2019-04-26] MEDS: finasteride 5mg tablet PO SCH (20:41)
--- NOTE | 2019-04-26 21:30 | NUR ---
Checked on pt to give him his BID pulmicort. Pt is adamant he just had his tx this evening. After explaining to him that he his last tx was this morning, he is still adamant. Pt states he "doesn't need another tx tonight" and is refusing. RN notified as well. Addendum: 04/26/19 at 2131 [address] RT Amended: Links added.
[2019-04-27] VITALS (10 sets, daily range): BP systolic 95–123; BP diastolic 39–68
[2019-04-27 03:34] LABS: BASOPHILS % (AUTO) 0.5 % (0-1); EOSINOPHILS # (AUTO) 0.1 X10'3 (0-0.9); EOSINOPHILS % (AUTO) 2.2 % (0-6); HEMATOCRIT 41.5 % (42.0-52.0); HEMOGLOBIN 13.7 g/dl (14.0-17.9); LYMPHOCYTES # (AUTO) 1.5 X10'3 (1.1-4.8); LYMPHOCYTES % (AUTO) 25.3 % (21-51); MEAN CORPUSCULAR HEMOGLOBIN 31.8 PG (27.0-31.0); MEAN CORPUSCULAR VOLUME 96.2 FL (78-98); MEAN PLATELET VOLUME 9.3 FL (7.4-10.4); MONOCYTES # (AUTO) 0.8 X10'3 (0-0.9); MONOCYTES % (AUTO) 13.3 % (2-12); NEUTROPHILS # (AUTO) 3.5 X10'3 (1.8-7.7); NEUTROPHILS % (AUTO) 58.7 % (42-75); PLATELET COUNT 99 X10'3 (140-440); RED BLOOD COUNT 4.31 X10'6 (4.70-6.10); RED CELL DISTRIBUTION WIDTH 14.7 % (11.5-14.5)
[2019-04-27 03:42] LABS: ALBUMIN 3.6 G/DL (3.4-5.0); ANION GAP 3 (8-16); BLOOD UREA NITROGEN 39 MG/DL (7-18); BUN/CREATININE RATIO 15.8 (5.4-32.0); CALCIUM 9.3 MG/DL (8.5-10.1); CHLORIDE 99 MMOL/L (99-107); CREATININE 2.47 MG/DL (0.60-1.10); GLUCOSE 114 MG/DL (70-104); MAGNESIUM 2.2 MG/DL (1.5-2.4); POTASSIUM 4.2 MMOL/L (3.5-5.1); SODIUM 142 MMOL/L (135-145); eGFR 25 ML/MIN
[2019-04-27 03:43] LABS: TOTAL CARBON DIOXIDE 40.1 MMOL/L (24-32)
--- NOTE | 2019-04-27 06:05 | NUR ---
Patient in room MED 309. I have received report from JAMI Maier and had the opportunity to ask questions and assume patient care.
[2019-04-27] MEDS: carvedilol 6.25mg tablet PO SCH ×2 (07:32→20:32)
[2019-04-27] MEDS: potassium Cl 20 mEq SR tablet PO SCH (07:32)
[2019-04-27] MEDS: omega-3 acid ethyl esters 1GM capsule PO SCH (07:32)
[2019-04-27] MEDS: tamsulosin 0.4mg capsule PO SCH ×2 (07:32→20:31)
[2019-04-27] MEDS: heparin, porcine 5000 units/ml vial SQ SCH ×2 (07:33→20:33)
[2019-04-27] MEDS: atorvastatin 20mg tablet PO SCH (07:33)
[2019-04-27] MEDS: aspirin 81mg tablet.DR PO SCH (07:33)
[2019-04-27] MEDS: levetiracetam 250mg tablet PO SCH ×2 (07:33→20:31)
[2019-04-27] MEDS: multivitamins, therapeutics tablet PO SCH (07:33)
[2019-04-27] MEDS: furosemide 10 MG/1 ML 10ml inj IV SCH (07:34)
[2019-04-27] MEDS: budesonide 0.5mg/2ml UD nebule IH SCH ×2 (07:42→19:35)
--- NOTE | 2019-04-27 12:52 | NUR ---
SPOKE WITH DR. DORADO RECEIVED ORDERS TO TAPER DOBUTAMINE GTT DOWN TO 3MCG/KG/MIN FOR 3 HOURS AND THEN TO D/C THE GTT AFTER THAT. RECEIVED ORDERS TO D/C IV LASIX AND SWITCH TO PO LASIX. WILL IMPLEMENT ORDERS AND CONTINUE TO MONITOR PT.
[2019-04-27] MEDS ORDERED: DOBUTamine-DoBUTrex 500mg/D5W 250 ML IV SCH (13:00)
--- NOTE | 2019-04-27 17:52 | NUR ---
I have reviewed and agree with all interventions, assessments performed and documented by Ana FARRELL .
--- NOTE | 2019-04-27 18:00 | NUR ---
Patient in room MED 309. I have received report from Ana FARRELL and had the opportunity to ask questions and assume patient care.
[2019-04-27] MEDS: finasteride 5mg tablet PO SCH (20:33)
[2019-04-27] MEDS: furosemide 40mg tablet PO SCH (22:30)
[2019-04-28 02:00] VITALS: BP 111/59
[2019-04-28 02:43] LABS: ALBUMIN 3.3 G/DL (3.4-5.0); ANION GAP 3 (8-16); BLOOD UREA NITROGEN 41 MG/DL (7-18); BUN/CREATININE RATIO 16.7 (5.4-32.0); CALCIUM 9.2 MG/DL (8.5-10.1); CHLORIDE 101 MMOL/L (99-107); CREATININE 2.46 MG/DL (0.60-1.10); GLUCOSE 192 MG/DL (70-104); MAGNESIUM 2.2 MG/DL (1.5-2.4); POTASSIUM 4.2 MMOL/L (3.5-5.1); SODIUM 142 MMOL/L (135-145); TOTAL CARBON DIOXIDE 38.1 MMOL/L (24-32); eGFR 25 ML/MIN
[2019-04-28 06:00] VITALS: BP 128/71
--- NOTE | 2019-04-28 06:00 | NUR ---
Patient in room MED 309. I have received report from MALVIN FARRELL and had the opportunity to ask questions and assume patient care.
--- NOTE | 2019-04-28 06:00 | NUR ---
Problems reprioritized. Patient report given, questions answered & plan of care reviewed with Gisela FARRELL.
[2019-04-28] MEDS: budesonide 0.5mg/2ml UD nebule IH SCH (08:25)
[2019-04-28] MEDS: heparin, porcine 5000 units/ml vial SQ SCH (08:58)
[2019-04-28] MEDS: furosemide 40mg tablet PO SCH (08:58)
[2019-04-28] MEDS: aspirin 81mg tablet.DR PO SCH (08:58)
[2019-04-28] MEDS: multivitamins, therapeutics tablet PO SCH (08:58)
[2019-04-28] MEDS: levetiracetam 250mg tablet PO SCH (08:58)
[2019-04-28] MEDS: atorvastatin 20mg tablet PO SCH (08:58)
[2019-04-28] MEDS: tamsulosin 0.4mg capsule PO SCH (08:58)
[2019-04-28] MEDS: omega-3 acid ethyl esters 1GM capsule PO SCH (08:58)
[2019-04-28] MEDS: potassium Cl 20 mEq SR tablet PO SCH (08:58)
[2019-04-28] MEDS: carvedilol 6.25mg tablet PO SCH (08:59)
[2019-04-28] MEDS ORDERED: POTA20TA10 PO (09:55)
[2019-04-28 11:00] VITALS: BP 121/64
--- NOTE | 2019-04-28 14:11 | NUR ---
Discussed patient discharge instructions, verbalized understanding, eager to go home. Called medications into [facility] pharmacy. IV dc'd and tele dc'd. Belongings sent home with patient. Daughter at bedside Received both vaccinations recently. Discharged without event via W/C and [facility] staff per patient family vehicle, tolerated well.
== END 2019-04-28 14:15 | disposition home health service (06) | DRG 291 ==
LOC: ER 10:12 → ED HOLD 15:23 → MED 3N 17:00
PROVIDERS: ADMIT Family Medicine; ATTEND Hospitalist
DX: I13.0 Hypertensive heart and chronic kidney disease with heart failure and stage 1 through stage 4 chronic kidney disease, or unspecified chronic kidney disease (principal); I50.23 Acute on chronic systolic (congestive) heart failure; N18.4 Chronic kidney disease, stage 4 (severe); E44.1 Mild protein-calorie malnutrition; I25.10 Atherosclerotic heart disease of native coronary artery without angina pectoris; I08.1 Rheumatic disorders of both mitral and tricuspid valves; N40.0 Benign prostatic hyperplasia without lower urinary tract symptoms; E78.5 Hyperlipidemia, unspecified; Z95.2 Presence of prosthetic heart valve; Z95.1 Presence of aortocoronary bypass graft; Z95.0 Presence of cardiac pacemaker; G40.909 Epilepsy, unspecified, not intractable, without status epilepticus; Z88.5 Allergy status to narcotic agent; D69.6 Thrombocytopenia, unspecified; G47.33 Obstructive sleep apnea (adult) (pediatric); E87.6 Hypokalemia; Z68.25 Body mass index [BMI] 25.0-25.9, adult
CPT/HCPCS: 36415; 71045; 80048; 80053; 83735; 83880; 84484; 85025; 87081; 93005; 93306; 93971; 94640; 94760; 96374; 99285; G0378; J1250; J1644; J1940; J3475; J7626